=== PATIENT | female | born 1990 | race Caucasian/White ===

== ENCOUNTER 2020-12-12 10:57 | Inpatient (IN) ==
[2020-12-12] MEDS ORDERED: Oxytocin 20 units/ LR 1000 mL 20 UNIT/1,000 ML BAG IVC ONE (11:20)
[2020-12-12] MEDS ORDERED: Ringers Solution, Lactated 1,000 ML IVC ONE (11:20)
[2020-12-12] MEDS ORDERED: Metoclopramide 10 MG/2 ML VIAL IVP ONE (11:20)
[2020-12-12] MEDS ORDERED: CeFAZolin 2,000 MG/50 ML BAG IVPB ONE (11:20)
[2020-12-12] MEDS ORDERED: Famotidine 20 MG/2 ML VIAL IVP ONE (11:20)
[2020-12-12] MEDS ORDERED: Ringers Solution, Lactated 1,000 ML IVC SCH (11:30)
[2020-12-12] MEDS ORDERED: Oxytocin 20 units/ LR 1000 mL 20 UNIT/1,000 ML BAG IVC SCH (11:30)
[2020-12-12 12:34] LABS: Basophils % 0.2 %; Eosinophils % 0.4 %; Hematocrit 37.2 % (35.3-44.9); Hemoglobin 12.3 g/dL (11.5-15.4); Immature Granulocytes % 0.4 % (0-4); Lymphocytes # 2.4 K/mcL (0.6-4.6); Mean Corpuscular HGB Conc 33.1 g/dL (31.6-35.5); Mean Corpuscular Hemoglobin 30.1 pg (28.0-33.3); Mean Corpuscular Volume 91.2 fL (83.0-100.0); Monocytes # 0.9 K/mcL (0.0-1.3); Monocytes % 9.2 %; Neutrophils # 5.9 K/mcL (1.6-8.9); Platelet Count 238 K/mcL (140-400); Red Blood Count 4.08 M/mcL (3.82-4.97); Red Cell Distribution Width 12.9 % (11.5-14.5); Segmented Neutrophils % 63.8 %; White Blood Count 9.3 K/mcL (4.3-11.1)
[2020-12-12 13:00] LABS: Amphetamine Screen,Urine Negative ng/mL (Cutoff=1000); Barbiturate Screen,Urine Negative ng/mL (Cutoff=200); Benzodiazepines Screen,Urine Negative ng/mL (Cutoff=200); Cannabinoid Screen,Urine Negative ng/mL (Cutoff = 50); Cocaine Screen,Urine Negative ng/mL (Cutoff= 300); Opiate Screen,Urine Negative ng/mL (Cutoff=300); Phencyclidine Screen,Urine Negative ng/mL (Cutoff=25)
[2020-12-12] MEDS ORDERED: EPHEDrine 50 MG/ML VIAL ONE (13:04)
[2020-12-12] MEDS ORDERED: Ketorolac 30 MG/ML VIAL ONE (13:04)
[2020-12-12] MEDS ORDERED: *HR* FentaNYL (PF) 100 MCG/2 ML VIAL ONE (13:04)
[2020-12-12] MEDS ORDERED: *HR* Morphine Sulfate/PF 10 MG/10 ML AMPUL ONE (13:04)
[2020-12-12] MEDS ORDERED: Ondansetron 4 MG/2 ML VIAL ONE (13:04)
[2020-12-12] MEDS ORDERED: *HR* HYDROmorphone PF 0.5 MG/0.5 ML SYRINGE IVP PRN (13:18)
[2020-12-12] MEDS ORDERED: Ondansetron 4 MG/2 ML VIAL IVP PRN (13:18)
[2020-12-12] MEDS ORDERED: *HR* OxyCODONE Immed Rel 5 MG TABLET PO PRN (13:18)
[2020-12-12] MEDS ORDERED: Acetaminophen IV 1,000 MG/100 ML BAG IVPB ONE (15:24)
[2020-12-12] MEDS ORDERED: Ringers Solution, Lactated 1,000 ML ONE (15:50)
[2020-12-12] MEDS ORDERED: Sennosides 8.6 MG TABLET PO PRN (19:54)
[2020-12-12] MEDS ORDERED: Lanolin 7 G OINT...G. TP PRN (19:54)
[2020-12-12] MEDS ORDERED: Benzocaine/Menthol 56 GM AEROSOL SPRAY TP PRN (19:54)
[2020-12-12 19:58] LABS: Basophils % 0.1 %; Hematocrit 33.7 % (35.3-44.9); Hemoglobin 11.5 g/dL (11.5-15.4); Immature Granulocytes % 0.5 % (0-4); Lymphocytes # 1.4 K/mcL (0.6-4.6); Lymphocytes % 9.5 %; Mean Corpuscular HGB Conc 34.1 g/dL (31.6-35.5); Mean Corpuscular Hemoglobin 31.2 pg (28.0-33.3); Mean Corpuscular Volume 91.3 fL (83.0-100.0); Mean Platelet Volume 10.4 fL (9.4-12.4); Monocytes # 0.3 K/mcL (0.0-1.3); Monocytes % 1.8 %; Neutrophils # 12.5 K/mcL (1.6-8.9); Platelet Count 196 K/mcL (140-400); Red Blood Count 3.69 M/mcL (3.82-4.97); Red Cell Distribution Width 12.7 % (11.5-14.5); Segmented Neutrophils % 88.1 %
[2020-12-12 20:00] LABS: White Blood Count 14.2 K/mcL (4.3-11.1)
[2020-12-12 20:17] LABS: Alanine Aminotransferase 19 Units/L (7-52); Aspartate Amino Transferase 27 Units/L (13-39); BUN/Creatinine Ratio 10 (6-26); Blood Urea Nitrogen 6 mg/dL (6-20); Lactate Dehydrogenase 262 Units/L (140-271); Uric Acid 4.3 mg/dL (2.3-7.6); eGFR For African Americans > 60 (> 60); eGFR For Non-African Americans > 60 (> 60)
[2020-12-12] MEDS: Oxytocin 20 units/ LR 1000 mL 20 UNIT/1,000 ML BAG IVC SCH (20:19)
[2020-12-12] MEDS: Ibuprofen 600 MG TABLET PO PRN (20:19)
[2020-12-12] MEDS: *HR* OxyCODONE Immed Rel 5 MG TABLET PO PRN (21:26)
[2020-12-13] MEDS: Oxytocin 20 units/ LR 1000 mL 20 UNIT/1,000 ML BAG IVC SCH (03:43)
[2020-12-13] MEDS: *HR* OxyCODONE Immed Rel 5 MG TABLET PO PRN ×3 (03:43→15:33)
[2020-12-13] MEDS: Acetaminophen 325 MG TABLET PO PRN ×2 (03:43→15:34)
[2020-12-13 04:32] LABS: Basophils % 0.1 %; Hemoglobin 10.5 g/dL (11.5-15.4); Immature Granulocytes % 0.4 % (0-4); Lymphocytes % 12.8 %; Mean Corpuscular HGB Conc 33.9 g/dL (31.6-35.5); Mean Corpuscular Volume 91.4 fL (83.0-100.0); Mean Platelet Volume 10.6 fL (9.4-12.4); Monocytes # 0.9 K/mcL (0.0-1.3); Monocytes % 5.6 %; Platelet Count 207 K/mcL (140-400); Red Blood Count 3.39 M/mcL (3.82-4.97); Red Cell Distribution Width 12.8 % (11.5-14.5); Segmented Neutrophils % 81.1 %
[2020-12-13] MEDS: Prenatal Vit/FA 1 EACH TABLET PO SCH (08:42)
[2020-12-13] MEDS ORDERED: NON-FORMULARY MEDICATION 1 EACH EACH (Prenatal 19 Tablet 1 TAB) PO SCH (09:00)
[2020-12-13] MEDS: Ibuprofen 600 MG TABLET PO PRN ×2 (11:30→19:27)
[2020-12-13] MEDS ORDERED: Simethicone 80 MG TAB.CHEW PO PRN (20:20)
[2020-12-14] MEDS: *HR* OxyCODONE Immed Rel 5 MG TABLET PO PRN ×3 (03:54→12:11)
[2020-12-14 07:59] VITALS: BP 130/84
[2020-12-14] MEDS: Prenatal Vit/FA 1 EACH TABLET PO SCH (08:11)
[2020-12-14] MEDS: Ibuprofen 600 MG TABLET PO PRN (08:11)
== END 2020-12-14 12:38 | disposition home or self-care (01) | DRG 787 ==
LOC: 1NENULAB 10:57 → 1NENUOBS 20:06
PROVIDERS: ADMIT Obstetrics & Gynecology; ATTEND Obstetrics & Gynecology